=== PATIENT | female | born 1960 | race Caucasian/White ===

== ENCOUNTER 2021-04-16 21:55 | Emergency (ER) | payer OTHER ==
[~2021-04-16] VITALS: Ht 160 cm; Wt 68.0 kg
[2021-04-16] MEDS ORDERED: ACCURETIC 20-21 EACH PO (22:08)
[2021-04-16] MEDS ORDERED: PERCOCET 5-3251 EACH PO (22:57)
[2021-04-16 23:09] VITALS: BP 195/98
== END 2021-04-16 23:30 | disposition home or self-care (01) ==
LOC: M.ERS 21:55
DX: S42.302A Unspecified fracture of shaft of humerus, left arm, initial encounter for closed fracture (principal); I10 Essential (primary) hypertension; Z88.0 Allergy status to penicillin; Z79.899 Other long term (current) drug therapy; W01.0XXA Fall on same level from slipping, tripping and stumbling without subsequent striking against object, initial encounter; Y93.89 Activity, other specified; Y92.89 Other specified places as the place of occurrence of the external cause; Y99.8 Other external cause status